=== PATIENT | male | born 1970 | race Two or more races ===

== ENCOUNTER 2018-09-04 01:48 | Emergency (ER) | payer MEDICAID ==
[~2018-09-04] VITALS: Ht 185.4 cm; Wt 122.5 kg
--- NOTE | 2018-09-04 01:54 | NUR ---
pt called for triage, no answer.
[2018-09-04 02:11] VITALS: BP 141/76
== END 2018-09-04 03:05 | disposition home or self-care (01) ==
LOC: ER 01:54
DX: L08.9 Local infection of the skin and subcutaneous tissue, unspecified (principal); B95.8 Unspecified staphylococcus as the cause of diseases classified elsewhere; F17.200 Nicotine dependence, unspecified, uncomplicated

== ENCOUNTER 2019-07-15 23:00 | Emergency (ER) | payer MEDICAID, OTHER ==
--- NOTE | 2019-07-16 00:32 | NUR ---
CALLED PT IN WAITING ROOM. NO RESPONSE.
--- NOTE | 2019-07-16 01:19 | NUR ---
CALLED PT IN WAITING ROOM. NO RESPONSE.
--- NOTE | 2019-07-16 01:43 | NUR ---
CALLED PT IN WAITING ROOM. NO RESPONSE.
[2019-09-26] MEDS ORDERED: SULF1TAB48 PO (14:53)
== END 2019-07-16 02:56 | disposition left against medical advice (07) ==
LOC: ER 23:02
DX: Z53.21 Procedure and treatment not carried out due to patient leaving prior to being seen by health care provider (principal)

== ENCOUNTER 2019-07-24 02:48 | Emergency (ER) | payer OTHER ==
[~2019-07-24] VITALS: Ht 182.9 cm; Wt 131.5 kg
[2019-07-24 02:48] VITALS: BP 145/93
--- NOTE | 2019-07-24 03:06 | NUR ---
CALLED FOR PT. NO RESPONSE
--- NOTE | 2019-07-24 04:26 | NUR ---
ABDOMINAL BINDER APPLIED TO ABDOMEN PER ER MD ORDER.
[2019-09-26] MEDS ORDERED: SULF1TAB48 PO (14:53)
== END 2019-07-24 04:50 | disposition home or self-care (01) ==
LOC: ER 02:49
DX: G89.29 Other chronic pain (principal); M54.5 Low back pain; K43.9 Ventral hernia without obstruction or gangrene; R21 Rash and other nonspecific skin eruption; F17.200 Nicotine dependence, unspecified, uncomplicated

== ENCOUNTER 2019-09-25 12:29 | Inpatient (IN) | payer OTHER ==
[~2019-09-25] VITALS: Ht 182.9 cm; Wt 130.6 kg
--- NOTE | 2019-09-25 12:36 | NUR ---
CALLED, NO ANSWER
--- NOTE | 2019-09-25 12:45 | NUR ---
BLE OPEN WOUND/ SKIN BREAK BREAKDOWN X 2 MONTHS NOW. PATIENT A/OX4, BREATHING EVEN AND UNLABORED, NO SOB NOTED. NEEDS ATTENDED.
--- NOTE | 2019-09-25 13:08 | NUR ---
Patient eloped from facility. ER MD notified.
[2019-09-25] MEDS ORDERED: VANCOMYCIN HCL IV ONE (13:30)
[2019-09-25] MEDS ORDERED: D5W IV ONE (13:30)
--- NOTE | 2019-09-25 13:30 | NUR ---
PATIENT CAME BACK TO FACILITY AND DECIDED HE WANTS TO BE ADMITTED. PATIENT C/O BLE WOUNDS.
[2019-09-25 13:35] LABS: BASOPHILS % (AUTO) 0.4 % (0.0-2.0); EOSINOPHILS % (AUTO) 1.1 % (0.0-6.0); HEMATOCRIT 39 % (39-51); HEMOGLOBIN 12.9 g/dL (13.5-17.5); LYMPHOCYTES # (AUTO) 2.3 /CMM (0.8-4.8); LYMPHOCYTES % (AUTO) 21.9 % (20.0-44.0); MEAN CORPUSCULAR HGB CONC 33 g/dl (31.0-36.0); MEAN CORPUSCULAR VOLUME 90 fL (80-96); MONOCYTES # (AUTO) 0.9 /CMM (0.1-1.30); MONOCYTES % (AUTO) 8.7 % (2.0-12.0); NEUTROPHILS # (AUTO) 7.1 /CMM (1.8-8.9); NEUTROPHILS % (AUTO) 67.9 % (43.0-81.0); PLATELET COUNT (AUTO) 278 /CMM (150-450); RED BLOOD CELL COUNT(AUTO) 4.37 MIL/uL (4.5-6.0); WHITE BLOOD COUNT (AUTO) 10.5 K/uL (4.3-11.0)
--- NOTE | 2019-09-25 13:45 | NUR ---
XRAY TEACHER CCLC AT BEDSIDE.
--- NOTE | 2019-09-25 13:51 | NUR ---
US TECH AT BEDSIDE.
[2019-09-25] MEDS ORDERED: VANCOMYCIN 1.5 GM in IV D5W 500ml IV ONE (14:00)
[2019-09-25] MEDS ORDERED: HYDR-4384 PO (14:02)
[2019-09-25 14:11] LABS: ALANINE AMINOTRANSFERASE 14 U/L (12-78); ALBUMIN 3.1 g/dL (3.4-5.0); ALKALINE PHOSPHATASE 72 U/L (46-116); ASPARTATE AMINOTRANSFERASE 11 U/L (15-37); B-TYPE NATRIURETIC PEPTIDE 40 PG/ML (0-125); BILIRUBIN,DIRECT 0.1 mg/dL (0.0-0.2); BILIRUBIN,TOTAL 0.4 mg/dL (0.2-1.0); CALCIUM, SERUM 8.7 mg/dL (8.5-10.1); CARBON DIOXIDE 26 mmol/L (21-32); CHLORIDE 102 mmol/L (98-107); CREATININE 1.1 mg/dL (0.6-1.3); GLUCOSE 109 mg/dL (74-106); SODIUM SERUM 139 mmol/L (136-145); UREA NITROGEN, BLOOD 18 mg/dL (7-18)
--- NOTE | 2019-09-25 14:58 | NUR ---
REPORT GIVEN TO PEMA HARGROVE.
[2019-09-25] MEDS ORDERED: HYDROCODONE/APAP 10/325MG 1 EA TABLET ONE (15:19)
[2019-09-25] MEDS ORDERED: HYDROCODONE/APAP 10/325MG 1 EA TABLET PO ONE (15:30)
[2019-09-25 16:00] VITALS: BP 135/80
[2019-09-25] MEDS ORDERED: MAG HYDROX/AL HYDROX/SIMETH 30 ML UDC PO PRN (16:00)
[2019-09-25] MEDS ORDERED: diphenhydrAMINE HCL 50 MG CAPSULE PO ONE (16:00)
[2019-09-25] MEDS ORDERED: ACETAMINOPHEN 325 MG TABLET PO PRN (16:00)
[2019-09-25] MEDS ORDERED: ONDANSETRON HCL/PF 4 MG/2 ML VIAL IVP PRN (16:00)
[2019-09-25] MEDS ORDERED: Z GUARD REMEDY 2 OZ OINT TP PRN (16:00)
[2019-09-25] MEDS ORDERED: MAGNESIUM HYDROXIDE 30 ML UDC PO PRN (16:00)
--- NOTE | 2019-09-25 16:03 | NUR ---
PATIENT TRANSFERRED TO ROOM 113-1 IN STABLE CONDITION. AMBULATORY. NO DISTRESS NOTED.
--- NOTE | 2019-09-25 16:21 | NUR ---
MS/RN ADMITTING NOTE Report received from Tara in ER. Patient arrived to unit, ambulated to bed. A/O x4, showing no signs of acute distress or SOB. T 98.1 HR 89 RR 18 O2 98% on RA BP 135/80. Patient is complaining of pain in BLE 12/14. IV line in the RFA #20g is clean and intact. Skin assessed, photos taken and placed in chart. POC glucose is 108. Bed is in lowest position, side rails x3 in upright position, call light is within reach and patient is aware of how to call for assistance when needed. Will continue with plan of care.
[2019-09-25] MEDS: HYDROCODONE/APAP 5/325MG 1 EACH TABLET PO PRN ×2 (17:59→23:35)
--- NOTE | 2019-09-25 18:38 | NUR ---
MS/RN CLOSING NOTE Patient is resting in bed, A/O x4, showing no signs of acute distress or SOB, stable on RA. Patient complaining of pain 8/10 in BLE during my shift, pain medication given. IV line in the RFA #20g is clean and intact. All patient needs met, all due meds given, patient is independent and motivated to self care. Bed is in lowest position, side rails x3 in upright position, call light is within reach and patient is aware of how to call for assistance when needed. Will endorse to supervisor cd area. .
--- NOTE | 2019-09-25 19:20 | NUR ---
MS RN RECEIVE PT IN BED A/O X 3 RESPIRATIONS EVEN AND UNLABORED, NO S/S OF DISTRESS, STABLE. SAFETY MEASURES AT ALL TIMES. WILL CONT TO MONITOR,
[2019-09-25 20:00] VITALS: BP 127/81
--- NOTE | 2019-09-25 20:38 | NUR ---
PT C/O PAIN BLE NOW PER PT NORCO DOESN'T DO ANYTHING PER PT HE TAKES PERCOCET 10/325MG [facility] RELAYED PT CONCERNS RECEIVED VERBAL ORDERS OF PERCOCET 5/325MG PO Q4HR PRN READ BACK AND VERIFIED ORDERS NOTED AND CARRIED OUT.
[2019-09-25] MEDS: oxyCODONE/APAP (5/325 MG) 1 UDTAB TABLET PO PRN (21:00)
--- NOTE | 2019-09-25 23:26 | NUR ---
PATIENT C/O ANXIOUS PT SAID HE IS TAKING XANAX 2 MG PO HS. NON PHARMACOLOGICAL IMPLEMENTED PAGED AND RELAYED HOSPITALIST SPOKE TO MARTITA PER MARTITA READ HIS CHART NO NEW ORDERS AT THIS TIME. READ BACK AND VERIFIED ORDERS NOTED AND CARRIED OUT.
[2019-09-26 04:00] VITALS: BP 132/80
[2019-09-26] MEDS: oxyCODONE/APAP (5/325 MG) 1 UDTAB TABLET PO PRN ×2 (04:37→11:45)
--- NOTE | 2019-09-26 06:19 | NUR ---
MS RN PT SLEPT WELL. MONITORED FOR PAIN. ALL NEEDS ATTENDED AND ANTICIPATED, KEPT CLEAN, DRY AND COMFORTABLE. GOOD SKIN CARE AT ALL TIMES. NURSING CARE RENDERED, SAFETY MEASURES AT ALL TIMES. WILL ENDORSE TO NEXT SHIFT.
--- NOTE | 2019-09-26 06:25 | NUR ---
MS RN NOTED PT'S ROOM SMELLS SMOKE PT EDUCATED SMOKING IS NOT PERMITTED AT HIS ROOM AND HOSPITAL PREMISES. PT VERBALIZED UNDERSTANDING. ASKED PT FOR US TO TO CHECK BELONGINGS PT REFUSED. PER PT " PLS DO NOT TOUCH MY BELONGINGS IM NOT SMOKING I DONT HAVE CIGARETTES WITH ME TODAY". DESPITE EXPLAINING RISKS AND BENEFITS
--- NOTE | 2019-09-26 07:00 | NUR ---
patient resting in room- no complaints or concerns- safety precautions in place- will continue to monitor report and record
[2019-09-26 07:15] LABS: BASOPHILS # (AUTO) 0.1 /CMM (0.0-0.2); BASOPHILS % (AUTO) 0.5 % (0.0-2.0); EOSINOPHILS % (AUTO) 1.9 % (0.0-6.0); HEMATOCRIT 38 % (39-51); HEMOGLOBIN 12.3 g/dL (13.5-17.5); LYMPHOCYTES % (AUTO) 20.2 % (20.0-44.0); MEAN CORPUSCULAR HGB CONC 33 g/dl (31.0-36.0); MEAN CORPUSCULAR VOLUME 89 fL (80-96); MONOCYTES # (AUTO) 0.7 /CMM (0.1-1.30); MONOCYTES % (AUTO) 7.6 % (2.0-12.0); NEUTROPHILS # (AUTO) 6.8 /CMM (1.8-8.9); NEUTROPHILS % (AUTO) 69.8 % (43.0-81.0); PLATELET COUNT (AUTO) 247 /CMM (150-450); RED BLOOD CELL COUNT(AUTO) 4.22 MIL/uL (4.5-6.0); WHITE BLOOD COUNT (AUTO) 9.8 K/uL (4.3-11.0)
[2019-09-26 07:22] LABS: CALCIUM, SERUM 8.5 mg/dL (8.5-10.1); MAGNESIUM 2.1 mg/dL (1.8-2.4); PHOSPHORUS 3.3 mg/dL (2.5-4.9); POTASSIUM 4.2 mmol/L (3.5-5.1)
[2019-09-26 08:00] VITALS: BP 115/83
[2019-09-26] MEDS: HYDROCODONE/APAP 5/325MG 1 EACH TABLET PO PRN (08:32)
--- NOTE | 2019-09-26 11:09 | NUR ---
patients room smells of smoke- discussed with patient that there is absolutely no smoking in the rooms/ or hospitals- patient states that he understand and does not smoke in the rooms- will continue to monitor report and record
--- NOTE | 2019-09-26 13:07 | NUR ---
patient has requested that I contact MD in regards to discharge- he wants to leave today
--- NOTE | 2019-09-26 13:53 | NUR ---
piv removed- discharge provided - info provided- patient verbalized understanding in regards to follow up - escorted patient off unit
--- NOTE | 2019-09-26 13:53 | NUR ---
patient refused discharge pictures to be taken
[2019-09-26] MEDS ORDERED: SULF1TAB48 PO (14:53)
== END 2019-09-26 13:00 | disposition home or self-care (01) | DRG 383 ==
LOC: ER 12:33 → MEDSG1 14:00 → UNDOADMIN 15:19 → UNDODISIN 09-26 13:59
PROVIDERS: ADMIT Internal Medicine; ATTEND Internal Medicine
DX: L03.116 Cellulitis of left lower limb (principal); E44.0 Moderate protein-calorie malnutrition; E66.01 Morbid (severe) obesity due to excess calories; E88.09 Other disorders of plasma-protein metabolism, not elsewhere classified; Z59.0 Homelessness; L03.115 Cellulitis of right lower limb; Z68.39 Body mass index [BMI] 39.0-39.9, adult; M19.90 Unspecified osteoarthritis, unspecified site; F17.200 Nicotine dependence, unspecified, uncomplicated; D63.8 Anemia in other chronic diseases classified elsewhere
CPT/HCPCS: 36415; 71045-TC; 80048-TC; 80076-TC; 82962-TC; 83605-TC; 83735-TC; 83880; 84100-TC; 84484-TC; 85025-TC; 85730-TC; 87040-TC; 87081-TC; 93970-TC; G0378; J3370; J7060; Q0163

== ENCOUNTER 2019-10-07 02:06 | Emergency (ER) | payer OTHER ==
[~2019-10-07] VITALS: Ht 182.9 cm; Wt 131.5 kg
[2019-10-07 02:06] VITALS: BP 164/88
[~2019-10-07 02:06] MED LIST: SULF1TAB48 PO
== END 2019-10-07 02:38 | disposition home or self-care (01) ==
LOC: ER 02:06
DX: L03.115 Cellulitis of right lower limb (principal); F17.210 Nicotine dependence, cigarettes, uncomplicated

== ENCOUNTER 2020-04-17 04:13 | Emergency (ER) | payer OTHER ==
[~2020-04-17] VITALS: Ht 182.9 cm; Wt 136.1 kg
--- NOTE | 2020-04-17 04:25 | NUR ---
CALLED PATIENT TO BE TRIAGED, NOT IN WAITING ROOM
[2020-04-17 04:44] VITALS: BP 131/87
[2020-04-17] MEDS ORDERED: HYDROCODONE/APAP 5/325MG TABLET PO ONE (05:00)
--- NOTE | 2020-04-17 05:14 | NUR ---
Patient discharged to home in stable condition. Written and verbal after care instructions given. Patient verbalizes understanding of instruction.
== END 2020-04-17 05:39 | disposition home or self-care (01) ==
LOC: ER 04:15
DX: L03.211 Cellulitis of face (principal); L03.114 Cellulitis of left upper limb; L03.113 Cellulitis of right upper limb; L08.9 Local infection of the skin and subcutaneous tissue, unspecified; E66.01 Morbid (severe) obesity due to excess calories; F17.210 Nicotine dependence, cigarettes, uncomplicated; Z68.41 Body mass index [BMI] 40.0-44.9, adult; Z79.899 Other long term (current) drug therapy

== ENCOUNTER 2020-04-28 22:52 | Emergency (ER) | payer OTHER ==
[~2020-04-28] VITALS: Ht 185.4 cm; Wt 136.1 kg
--- NOTE | 2020-04-28 23:31 | NUR ---
CALLED TO TRIAGE, NOT IN WAITING ROOM
[2020-04-29 00:15] VITALS: BP 134/94
== END 2020-04-29 00:48 | disposition home or self-care (01) ==
LOC: ER 22:54
DX: R21 Rash and other nonspecific skin eruption (principal); F17.210 Nicotine dependence, cigarettes, uncomplicated; Z79.899 Other long term (current) drug therapy

== ENCOUNTER 2024-04-15 17:21 | Emergency (ER) | payer OTHER ==
[~2024-04-15] VITALS: Ht 182.9 cm; Wt 122.5 kg
[2024-04-15] MEDS ORDERED: CEPH-570 PO (17:55)
[2024-04-15] MEDS ORDERED: FURO-144 PO (17:55)
[2024-04-15] MEDS ORDERED: FUROSEMIDE 40 MG TABLET ONE (18:08)
[2024-04-15] MEDS: FUROSEMIDE 40 MG TABLET PO ONE (18:11)
[2024-04-15] MEDS: ACETAMINOPHEN ES 500 MG TABLET PO ONE (18:11)
[2024-04-15] MEDS ORDERED: ACETAMINOPHEN ES 500 MG TABLET ONE (18:11)
[2024-04-15 18:12] VITALS: BP 141/81; TEMP 98; O2SAT 98
[2024-04-18] MEDS ORDERED: CEPH-570 PO (19:12)
[2024-04-18] MEDS ORDERED: FURO-144 PO (19:12)
== END 2024-04-15 18:33 | disposition home or self-care (01) ==
LOC: ER 17:27
DX: R60.0 Localized edema (principal); I87.2 Venous insufficiency (chronic) (peripheral); F17.210 Nicotine dependence, cigarettes, uncomplicated; Z91.148 Patient's other noncompliance with medication regimen for other reason

== ENCOUNTER 2024-04-20 09:01 | Inpatient (IN) | payer OTHER ==
[~2024-04-20] VITALS: Ht 182.9 cm; Wt 149.0 kg
[~2024-04-20 09:01] MED LIST changes: +CEPH-570 PO; +FURO-144 PO
[2024-04-20] MEDS ORDERED: CLINDAMYCIN 600 MG in IV D5W 100 ML IV ONE (09:30)
[2024-04-20] MEDS ORDERED: FUROSEMIDE 40 MG/4 ML VIAL ONE (09:39)
[2024-04-20] MEDS ORDERED: MORPHINE SULFATE INJ 4 MG/ML DISP.SYRIN ONE (09:39)
[2024-04-20] MEDS ORDERED: ONDANSETRON HCL/PF 4 MG/2 ML VIAL ONE (09:39)
[2024-04-20] MEDS: ONDANSETRON HCL/PF 4 MG/2 ML VIAL IVP ONE (09:49)
[2024-04-20] MEDS: MORPHINE SULFATE INJ 2 MG/ML DISP.SYRIN IV ONE (09:50)
[2024-04-20 10:00] LABS: BASOPHILS % (AUTO) 0.1 % (0.0-2.0); EOSINOPHILS % (AUTO) 0.1 % (0.0-6.0); HEMATOCRIT 37 % (39-51); HEMOGLOBIN 11.9 g/dL (13.5-17.5); LYMPHOCYTES # (AUTO) 2.2 K/uL (0.8-4.8); LYMPHOCYTES % (AUTO) 6.3 % (20.0-44.0); MEAN CORPUSCULAR HEMOGLOBIN 27 PG (26.0-33.0); MEAN CORPUSCULAR HGB CONC 32 g/dl (31.0-36.0); MEAN CORPUSCULAR VOLUME 84 fL (80-96); MONOCYTES # (AUTO) 1.5 K/uL (0.1-1.30); MONOCYTES % (AUTO) 4.3 % (2.0-12.0); NEUTROPHILS # (AUTO) 30.9 K/uL (1.8-8.9); NEUTROPHILS % (AUTO) 89.2 % (43.0-81.0); PLATELET COUNT (AUTO) 312 K/uL (150-450)
[2024-04-20 10:01] LABS: WHITE BLOOD COUNT (AUTO) 34.7 K/uL (4.3-11.0)
[2024-04-20 10:03] LABS: CALCIUM, SERUM 8.6 mg/dL (8.5-10.1); CARBON DIOXIDE 31 mmol/L (21-32); CHLORIDE 89 mmol/L (98-107); CREATININE 1.5 mg/dL (0.6-1.3); GLUCOSE 139 mg/dL (74-106); SODIUM SERUM 131 mmol/L (136-145); UREA NITROGEN, BLOOD 15 mg/dL (7-18)
[2024-04-20 10:06] LABS: INR 1.04 (0.91-1.10); PARTIAL THROMBOPLASTIN TIME 30.5 SEC (24.3-34.3)
[2024-04-20 10:06] LABS: POTASSIUM 2.6 mmol/L (3.5-5.1)
[2024-04-20 10:09] LABS: ALANINE AMINOTRANSFERASE 15 U/L (12-78); ALKALINE PHOSPHATASE 193 U/L (46-116); ASPARTATE AMINOTRANSFERASE 29 U/L (15-37); BILIRUBIN,DIRECT 0.5 mg/dL (0.0-0.2); TOTAL PROTEIN, SERUM 7.8 g/dL (6.4-8.2)
[2024-04-20 10:12] LABS: LACTIC ACID 3.8 mmol/L (0.4-2.0)
[2024-04-20] MEDS: FUROSEMIDE 40 MG/4 ML VIAL IV ONE (10:16)
[2024-04-20 10:29] LABS: C-REACTIVE PROTEIN 35.58 mg/dL (0.0-0.30)
[2024-04-20] MEDS: CEFEPIME 1 GM in IV D5W 50 ML IV ONE (10:30)
[2024-04-20 10:49] LABS: EOSINOPHILS % (MANUAL) 1 % (0-4); LYMPHOCYTES % (MANUAL) 11 % (16-48); MONOCYTES % (MANUAL) 1 % (0-11.0); NEUTROPHILS % (MANUAL) 85 (42-76); PLATELET ESTIMATE ADEQUATE; REACTIVE LYMPHOCYTES 2 % (0-0)
[2024-04-20] MEDS: POTASSIUM CL. PREMIX PERIPHER. 50 ML IV SCH (10:50)
[2024-04-20 10:51] LABS: ANISOCYTOSIS 1+
[2024-04-20] MEDS: VANCOMYCIN 1 GM in IV D5W 250 ML IV ONE (11:00)
[2024-04-20] MEDS: Magnesium 1GM/D5W 100ML PREMIX 100 ML IV SCH (11:00)
[2024-04-20] MEDS ORDERED: KCL PO (11:29)
[2024-04-20] MEDS ORDERED: Z GUARD REMEDY 4 OZ OINT TP PRN (12:00)
[2024-04-20] MEDS: CLINDAMYCIN 600 MG in IV NS 0.9% 50 ML IV ONE (12:00)
[2024-04-20] MEDS ORDERED: MAGNESIUM HYDROXIDE 30 ML UDC PO PRN (12:00)
[2024-04-20] MEDS ORDERED: CLINDAMYCIN IV RTU IN D5W 900 MG/50 ML PIGGYBACK IV SCH ×2 (12:00→13:00)
[2024-04-20] MEDS ORDERED: MAG HYDROX/AL HYDROX/SIMETH 30 ML UDC PO PRN (12:00)
[2024-04-20 12:23] LABS: ALBUMIN 1.5 g/dL (3.4-5.0)
[2024-04-20 12:40] VITALS: BP 130/84; TEMP 99; O2SAT 95
[2024-04-20] MEDS: IV NS 0.9% 1,000 ML IV PRN (14:38)
[2024-04-20] MEDS: PANTOPRAZOLE 40 MG TABLET.DR PO SCH (14:58)
[2024-04-20] MEDS: MORPHINE SULFATE INJ 2 MG/ML DISP.SYRIN IV PRN (14:59)
[2024-04-20] MEDS: VANCOMYCIN 1 GM in IV D5W 250ml IV ONE (15:12)
[2024-04-20 16:00] VITALS: BP 142/77; TEMP 98.9; O2SAT 93
[2024-04-20 16:27] LABS: CALCIUM, SERUM 8.2 mg/dL (8.5-10.1); CREATININE 1.1 mg/dL (0.6-1.3)
[2024-04-20 16:36] LABS: POTASSIUM 2.6 mmol/L (3.5-5.1)
[2024-04-20] MEDS: IV NS 0.9% 500 ML BAG IV ONE (17:20)
[2024-04-20] MEDS: ONDANSETRON HCL/PF 4 MG/2 ML VIAL IVP PRN (17:32)
[2024-04-20] MEDS: HYDROMORPHONE 1 MG/1 ML DISP.SYRIN IV PRN (17:33)
[2024-04-20] MEDS: CEFEPIME 2 GM in IV D5W 100 ML IV SCH (18:14)
[2024-04-20] MEDS: ENOXAPARIN SODIUM 40 MG/0.4 ML DISP.SYRIN SQ SCH (18:14)
[2024-04-20 20:00] VITALS: BP 118/76; TEMP 99.5; O2SAT 92
[2024-04-20] MEDS: CLINDAMYCIN 900 MG in IV D5W 50 ML IV SCH (20:55)
[2024-04-21] VITALS: BP 112/86; TEMP 98.2; O2SAT 99
[2024-04-21] MEDS: VANCOMYCIN HCL 1.25 GM in IV D5W 250 ML IV SCH (02:04)
[2024-04-21 04:00] VITALS: BP 121/69; TEMP 98.1; O2SAT 92
[2024-04-21 07:08] LABS: BASOPHILS % (AUTO) 0.1 % (0.0-2.0); EOSINOPHILS # (AUTO) 0.1 K/uL (0.0-0.7); EOSINOPHILS % (AUTO) 0.2 % (0.0-6.0); HEMATOCRIT 31 % (39-51); HEMOGLOBIN 10.3 g/dL (13.5-17.5); LYMPHOCYTES # (AUTO) 1.5 K/uL (0.8-4.8); LYMPHOCYTES % (AUTO) 5.7 % (20.0-44.0); MEAN CORPUSCULAR HEMOGLOBIN 27 PG (26.0-33.0); MEAN CORPUSCULAR HGB CONC 33 g/dl (31.0-36.0); MEAN CORPUSCULAR VOLUME 82 fL (80-96); MONOCYTES # (AUTO) 1.3 K/uL (0.1-1.30); MONOCYTES % (AUTO) 5.1 % (2.0-12.0); NEUTROPHILS # (AUTO) 23.3 K/uL (1.8-8.9); NEUTROPHILS % (AUTO) 88.9 % (43.0-81.0); PLATELET COUNT (AUTO) 345 K/uL (150-450); RED BLOOD CELL COUNT(AUTO) 3.79 MIL/uL (4.5-6.0); RED CELL DISTRIBUTION WIDTH 14.6 % (11.5-15.0); WHITE BLOOD COUNT (AUTO) 26.2 K/uL (4.3-11.0)
[2024-04-21 07:24] LABS: BILIRUBIN,TOTAL 1.1 mg/dL (0.2-1.0); CALCIUM, SERUM 8.2 mg/dL (8.5-10.1); MAGNESIUM 2.2 mg/dL (1.8-2.4); PHOSPHORUS 3.6 mg/dL (2.5-4.9)
[2024-04-21 07:37] LABS: THYROID STIMULATING HORMONE 0.51 uIU/mL (0.358-3.74)
[2024-04-21 07:52] LABS: ALBUMIN 1.3 g/dL (3.4-5.0); POTASSIUM 2.6 mmol/L (3.5-5.1)
[2024-04-21 08:00] VITALS: BP 119/69; TEMP 98.5; O2SAT 92
[2024-04-21] MEDS: HYDROCODONE/APAP 10/325MG TABLET PO PRN (08:06)
[2024-04-21 08:36] LABS: ANISOCYTOSIS 1+; LYMPHOCYTES % (MANUAL) 10 % (16-48); MONOCYTES % (MANUAL) 4 % (0-11.0); NEUTROPHILS % (MANUAL) 86 (42-76); PLATELET ESTIMATE ADEQUATE
[2024-04-21] MEDS: SILVER SULFADIAZINE CREAM 25 GM TUBE TP SCH (10:32)
[2024-04-21] MEDS ORDERED: DEXTROSE 50%-WATER 50 ML DISP.SYRIN IV PRN (11:30)
[2024-04-21 12:00] VITALS: BP 119/75; TEMP 98.1; O2SAT 92
[2024-04-21] MEDS: POTASSIUM CHLORIDE 20 MEQ TAB.PRT.SR PO ONE ×3 (12:01→19:42)
[2024-04-21] MEDS: BLOOD SUGAR DIAGNOSTIC 1 EACH STRIP IN SCH (12:01)
[2024-04-21] MEDS: VANCOMYCIN 1.5 GM in IV D5W 500 ML IV SCH (13:56)
[2024-04-21 14:52] LABS: HIV-1 p24 ANTIGEN NON REACTIVE (NONREACTIVE); HIV-1/2 ANTIBODY NON REACTIVE (NONREACTIVE)
[2024-04-21 16:00] VITALS: BP 112/79; TEMP 97.9; O2SAT 92
[2024-04-21 20:00] VITALS: BP 130/76; TEMP 97.9; O2SAT 95
[2024-04-21] MEDS: CALCIUM CARBONATE 500 MG TAB.CHEW PO PRN (20:00)
[2024-04-22] VITALS: BP 133/79; TEMP 98.3; O2SAT 97
[2024-04-22 04:00] VITALS: BP 139/86; TEMP 98.5; O2SAT 95
[2024-04-22 06:49] LABS: BASOPHILS % (AUTO) 0.2 % (0.0-2.0); EOSINOPHILS # (AUTO) 0.1 K/uL (0.0-0.7); EOSINOPHILS % (AUTO) 0.4 % (0.0-6.0); HEMATOCRIT 32 % (39-51); HEMOGLOBIN 10.5 g/dL (13.5-17.5); LYMPHOCYTES # (AUTO) 1.7 K/uL (0.8-4.8); LYMPHOCYTES % (AUTO) 7.7 % (20.0-44.0); MEAN CORPUSCULAR HEMOGLOBIN 27 PG (26.0-33.0); MEAN CORPUSCULAR HGB CONC 32 g/dl (31.0-36.0); MEAN CORPUSCULAR VOLUME 84 fL (80-96); MONOCYTES % (AUTO) 4.7 % (2.0-12.0); NEUTROPHILS # (AUTO) 18.8 K/uL (1.8-8.9); PLATELET COUNT (AUTO) 417 K/uL (150-450); RED BLOOD CELL COUNT(AUTO) 3.84 MIL/uL (4.5-6.0); RED CELL DISTRIBUTION WIDTH 14.7 % (11.5-15.0); WHITE BLOOD COUNT (AUTO) 21.6 K/uL (4.3-11.0)
[2024-04-22 07:08] LABS: CALCIUM, SERUM 8.9 mg/dL (8.5-10.1); CREATININE 0.9 mg/dL (0.6-1.3); POTASSIUM 3.4 mmol/L (3.5-5.1)
[2024-04-22 08:00] VITALS: BP 130/81; TEMP 97.7; O2SAT 96
[2024-04-22 08:07] LABS: PTH, INTACT 65 pg/mL (15-65)
[2024-04-22] MEDS: INSULIN REGULAR, HUMAN 100 UNIT/ML 3 ML VIAL SQ PRN ×2 (08:44→16:42)
[2024-04-22 10:16] LABS: LYMPHOCYTES % (MANUAL) 4 % (16-48); MONOCYTES % (MANUAL) 5 % (0-11.0); MYELOCYTES % 2 % (0-0); NEUTROPHILS % (MANUAL) 89 (42-76)
[2024-04-22 10:22] LABS: ANISOCYTOSIS 1+; PLATELET ESTIMATE ADEQUATE
[2024-04-22] MEDS: POTASSIUM CHLORIDE 20 MEQ TAB.PRT.SR PO SCH (11:11)
[2024-04-22 13:08] LABS: *SPE A/G RATIO 0.4 (0.7-1.7); *SPE ALBUMIN 1.6 g/dL (2.9-4.4); *SPE ALPHA-1-GLOBULIN 0.6 g/dL (0.0-0.4); *SPE ALPHA-2-GLOBULIN 1.4 g/dL (0.4-1.0); *SPE BETA GLOBULIN 1.1 g/dL (0.7-1.3); *SPE GLOBULIN, TOTAL 4.4 g/dL (2.2-3.9); *SPE M-SPIKE Not Observed g/dL (Not Observed); *SPEGAMMA GLOBULIN 1.4 g/dL (0.4-1.8)
[2024-04-22] MEDS ORDERED: DEXTROSE 50%-WATER 50 ML DISP.SYRIN IV PRN (13:30)
[2024-04-22 16:00] VITALS: BP 135/86; TEMP 98.2; O2SAT 98
[2024-04-22] MEDS: glipiZIDE 5 MG TABLET PO SCH (16:24)
[2024-04-22] MEDS: BLOOD SUGAR DIAGNOSTIC 1 EACH STRIP IN SCH (16:42)
[2024-04-22 20:00] VITALS: BP 143/88; TEMP 99.9; O2SAT 95
[2024-04-23] VITALS: BP 143/88; TEMP 98.4; O2SAT 95
[2024-04-23 04:00] VITALS: BP 114/69; TEMP 99.1; O2SAT 97
[2024-04-23 06:27] LABS: BASOPHILS % (AUTO) 0.2 % (0.0-2.0); EOSINOPHILS # (AUTO) 0.1 K/uL (0.0-0.7); EOSINOPHILS % (AUTO) 0.3 % (0.0-6.0); HEMATOCRIT 31 % (39-51); HEMOGLOBIN 9.9 g/dL (13.5-17.5); LYMPHOCYTES # (AUTO) 1.8 K/uL (0.8-4.8); LYMPHOCYTES % (AUTO) 7.7 % (20.0-44.0); MEAN CORPUSCULAR HEMOGLOBIN 27 PG (26.0-33.0); MEAN CORPUSCULAR HGB CONC 32 g/dl (31.0-36.0); MEAN CORPUSCULAR VOLUME 84 fL (80-96); MONOCYTES # (AUTO) 1.5 K/uL (0.1-1.30); MONOCYTES % (AUTO) 6.7 % (2.0-12.0); NEUTROPHILS # (AUTO) 19.4 K/uL (1.8-8.9); NEUTROPHILS % (AUTO) 85.1 % (43.0-81.0); PLATELET COUNT (AUTO) 444 K/uL (150-450); RED CELL DISTRIBUTION WIDTH 14.6 % (11.5-15.0); WHITE BLOOD COUNT (AUTO) 22.8 K/uL (4.3-11.0)
[2024-04-23 07:42] LABS: CALCIUM, SERUM 9.1 mg/dL (8.5-10.1); CREATININE 0.9 mg/dL (0.6-1.3)
[2024-04-23 08:00] VITALS: BP 135/67; TEMP 97.6; O2SAT 94
[2024-04-23] MEDS: METRONIDAZOLE 500 MG TABLET PO SCH (09:12)
[2024-04-23 13:11] LABS: BAND % (MANUAL) 4 % (0.0-5.0)
[2024-04-23 13:12] LABS: EOSINOPHILS % (MANUAL) 1 % (0-4); LYMPHOCYTES % (MANUAL) 14 % (16-48); MONOCYTES % (MANUAL) 4 % (0-11.0); NEUTROPHILS % (MANUAL) 77 (42-76)
[2024-04-23 13:13] LABS: ANISOCYTOSIS 1+; PLATELET ESTIMATE ADEQUATE
[2024-04-23 16:00] VITALS: BP 137/74; TEMP 98.2; O2SAT 95
[2024-04-23 21:38] VITALS: BP 136/74; TEMP 98.4; O2SAT 99
[2024-04-24 04:22] VITALS: BP 159/99; TEMP 98.6; O2SAT 99
[2024-04-24 06:26] LABS: BASOPHILS % (AUTO) 0.2 % (0.0-2.0); EOSINOPHILS # (AUTO) 0.1 K/uL (0.0-0.7); EOSINOPHILS % (AUTO) 0.5 % (0.0-6.0); HEMATOCRIT 32 % (39-51); HEMOGLOBIN 10.2 g/dL (13.5-17.5); LYMPHOCYTES # (AUTO) 1.8 K/uL (0.8-4.8); LYMPHOCYTES % (AUTO) 10.1 % (20.0-44.0); MEAN CORPUSCULAR HEMOGLOBIN 27 PG (26.0-33.0); MEAN CORPUSCULAR HGB CONC 32 g/dl (31.0-36.0); MEAN CORPUSCULAR VOLUME 86 fL (80-96); MONOCYTES # (AUTO) 1.2 K/uL (0.1-1.30); NEUTROPHILS # (AUTO) 14.2 K/uL (1.8-8.9); NEUTROPHILS % (AUTO) 82.2 % (43.0-81.0); PLATELET COUNT (AUTO) 524 K/uL (150-450); RED BLOOD CELL COUNT(AUTO) 3.76 MIL/uL (4.5-6.0); RED CELL DISTRIBUTION WIDTH 14.8 % (11.5-15.0); WHITE BLOOD COUNT (AUTO) 17.3 K/uL (4.3-11.0)
[2024-04-24 06:51] LABS: CALCIUM, SERUM 8.7 mg/dL (8.5-10.1); CREATININE 0.9 mg/dL (0.6-1.3)
[2024-04-24 08:00] VITALS: BP 131/87; TEMP 97.7; TEMP 98.6; O2SAT 97; O2SAT 99
[2024-04-24] MEDS: ACETAMINOPHEN 325 MG TABLET PO PRN (09:36)
[2024-04-24 11:49] LABS: EOSINOPHILS % (MANUAL) 1 % (0-4); LYMPHOCYTES % (MANUAL) 9 % (16-48); METAMYELOCYTES % 1 % (0-0); MONOCYTES % (MANUAL) 8 % (0-11.0); MYELOCYTES % 1 % (0-0); NEUTROPHILS % (MANUAL) 80 (42-76); PLATELET ESTIMATE ADEQUATE
[2024-04-24 11:50] LABS: ANISOCYTOSIS 1+; STOMATOCYTES 1+
[2024-04-24 20:00] VITALS: BP 124/63; TEMP 98.1; O2SAT 96
[2024-04-25 04:00] VITALS: BP 149/84; TEMP 97.9; O2SAT 96
[2024-04-25 06:47] LABS: BASOPHILS # (AUTO) 0.1 K/uL (0.0-0.2); BASOPHILS % (AUTO) 0.7 % (0.0-2.0); EOSINOPHILS # (AUTO) 0.1 K/uL (0.0-0.7); EOSINOPHILS % (AUTO) 0.5 % (0.0-6.0); HEMATOCRIT 34 % (39-51); HEMOGLOBIN 10.8 g/dL (13.5-17.5); LYMPHOCYTES # (AUTO) 1.9 K/uL (0.8-4.8); LYMPHOCYTES % (AUTO) 9.4 % (20.0-44.0); MEAN CORPUSCULAR HEMOGLOBIN 27 PG (26.0-33.0); MEAN CORPUSCULAR HGB CONC 32 g/dl (31.0-36.0); MEAN CORPUSCULAR VOLUME 85 fL (80-96); MONOCYTES # (AUTO) 1.4 K/uL (0.1-1.30); MONOCYTES % (AUTO) 7.1 % (2.0-12.0); NEUTROPHILS # (AUTO) 16.3 K/uL (1.8-8.9); NEUTROPHILS % (AUTO) 82.3 % (43.0-81.0); PLATELET COUNT (AUTO) 365 K/uL (150-450); RED BLOOD CELL COUNT(AUTO) 4.05 MIL/uL (4.5-6.0); RED CELL DISTRIBUTION WIDTH 15.2 % (11.5-15.0); WHITE BLOOD COUNT (AUTO) 19.8 K/uL (4.3-11.0)
[2024-04-25 07:24] LABS: CALCIUM, SERUM 8.8 mg/dL (8.5-10.1); CREATININE 0.9 mg/dL (0.6-1.3); POTASSIUM 4.2 mmol/L (3.5-5.1)
[2024-04-25 08:00] VITALS: BP 135/90; TEMP 97.7; O2SAT 95
[2024-04-25 09:18] LABS: BAND % (MANUAL) 2 % (0.0-5.0); EOSINOPHILS % (MANUAL) 1 % (0-4); LYMPHOCYTES % (MANUAL) 16 % (16-48); METAMYELOCYTES % 1 % (0-0); MONOCYTES % (MANUAL) 6 % (0-11.0); NEUTROPHILS % (MANUAL) 74 (42-76)
[2024-04-25 09:19] LABS: PLATELET ESTIMATE ADEQUATE; STOMATOCYTES 1+
[2024-04-25] MEDS ORDERED: HYDROMORPHONE 1 MG/1 ML DISP.SYRIN IV PRN (11:30)
[2024-04-25] MEDS: VANCOMYCIN 1.5 GM in IV D5W 500 ML IV SCH (16:30)
[2024-04-25 20:00] VITALS: BP 129/87; TEMP 99.1; O2SAT 96
[2024-04-25] MEDS: MUPIROCIN OINT 2% 22 GM TUBE NS SCH (20:43)
[2024-04-26 04:00] VITALS: BP 130/91; TEMP 97.1; O2SAT 98
[2024-04-26 07:12] LABS: BASOPHILS % (AUTO) 0.2 % (0.0-2.0); EOSINOPHILS # (AUTO) 0.1 K/uL (0.0-0.7); EOSINOPHILS % (AUTO) 0.8 % (0.0-6.0); HEMATOCRIT 30 % (39-51); HEMOGLOBIN 9.4 g/dL (13.5-17.5); LYMPHOCYTES # (AUTO) 1.8 K/uL (0.8-4.8); LYMPHOCYTES % (AUTO) 11.9 % (20.0-44.0); MEAN CORPUSCULAR HEMOGLOBIN 27 PG (26.0-33.0); MEAN CORPUSCULAR HGB CONC 32 g/dl (31.0-36.0); MEAN CORPUSCULAR VOLUME 85 fL (80-96); MONOCYTES # (AUTO) 1.4 K/uL (0.1-1.30); MONOCYTES % (AUTO) 9.1 % (2.0-12.0); NEUTROPHILS # (AUTO) 11.9 K/uL (1.8-8.9); PLATELET COUNT (AUTO) 476 K/uL (150-450); RED BLOOD CELL COUNT(AUTO) 3.49 MIL/uL (4.5-6.0); RED CELL DISTRIBUTION WIDTH 15.1 % (11.5-15.0); WHITE BLOOD COUNT (AUTO) 15.2 K/uL (4.3-11.0)
[2024-04-26 07:35] LABS: CALCIUM, SERUM 8.7 mg/dL (8.5-10.1); POTASSIUM 4.3 mmol/L (3.5-5.1)
[2024-04-26 09:22] LABS: EOSINOPHILS % (MANUAL) 1 % (0-4); LYMPHOCYTES % (MANUAL) 8 % (16-48); METAMYELOCYTES % 1 % (0-0); MONOCYTES % (MANUAL) 9 % (0-11.0); MYELOCYTES % 1 % (0-0); NEUTROPHILS % (MANUAL) 80 (42-76); PLATELET ESTIMATE INCREASED
[2024-04-26 09:24] LABS: ANISOCYTOSIS 1+; STOMATOCYTES 1+
[2024-04-26] MEDS ORDERED: ACID1TAB12 PO (13:03)
[2024-04-26] MEDS ORDERED: LINE600T13 PO (13:03)
== END 2024-04-26 15:20 | disposition home or self-care (01) | DRG 720 ==
LOC: ER 09:03 → TELE1 11:39 → TELE-TD 13:12 → TELE1 04-21 09:33 → MEDSG1 04-22 10:48
PROVIDERS: ADMIT Nurse Practitioner Acute Care; ATTEND Nurse Practitioner Acute Care
DX: A41.9 Sepsis, unspecified organism (principal); N17.0 Acute kidney failure with tubular necrosis; E43 Unspecified severe protein-calorie malnutrition; E87.20 Acidosis, unspecified; E11.622 Type 2 diabetes mellitus with other skin ulcer; E87.1 Hypo-osmolality and hyponatremia; E86.1 Hypovolemia; D64.9 Anemia, unspecified; L03.116 Cellulitis of left lower limb; I87.8 Other specified disorders of veins; R65.20 Severe sepsis without septic shock; M89.8X9 Other specified disorders of bone, unspecified site; Z91.119 Patient's noncompliance with dietary regimen due to unspecified reason; Z79.899 Other long term (current) drug therapy; F17.200 Nicotine dependence, unspecified, uncomplicated; I10 Essential (primary) hypertension; F15.90 Other stimulant use, unspecified, uncomplicated; M17.12 Unilateral primary osteoarthritis, left knee; E66.01 Morbid (severe) obesity due to excess calories; Z68.41 Body mass index [BMI] 40.0-44.9, adult; E87.6 Hypokalemia; E88.09 Other disorders of plasma-protein metabolism, not elsewhere classified; F12.90 Cannabis use, unspecified, uncomplicated; I89.0 Lymphedema, not elsewhere classified; I87.312 Chronic venous hypertension (idiopathic) with ulcer of left lower extremity; L97.829 Non-pressure chronic ulcer of other part of left lower leg with unspecified severity; R79.82 Elevated C-reactive protein (CRP); M25.462 Effusion, left knee; R79.89 Other specified abnormal findings of blood chemistry
CPT/HCPCS: 36415; 71045-TC; 73700-TC; 76770-TC; 80048-TC; 80053-TC; 80061-TC; 80076-TC; 80202-TC; 82550-TC; 82962-TC; 83605-TC; 83735-TC; 83880; 83970; 84100-TC; 84155; 84165; 84443-TC; 84484-TC; 85025-TC; 85652-TC; 85730-TC; 86140-TC; 86803; 87040-TC; 87081-TC; 87806; 93307-TC; A4223; A6253; G0378; J0692; J1171; J1650; J1815; J1940; J2270; J2405; J3370; J3371; J3475; J3480; J3490; J7030; J7040; J7060